=== PATIENT | male | born 1975 | race Caucasian/White ===

== ENCOUNTER → 2018-06-16 14:26 | Outpatient (CLI) | payer MEDICAID, SELFPAY ==
--- NOTE | 2018-06-16 14:29 | MR_ITS ---
MR lumbar spine wo con, MR 3-d myelogram/MRCP HISTORY: LBP XYRS. Bilateral LBP with Leg pain. LT Leg gives out. ITS.REASON: LOW BACK PAIN ORDERING PHYSICIAN: Alicia Lyons PATIENT AGE: 42 years Comparison: None TECHNIQUE: Standard multiplanar multiecho sequences are performed without contrast. 3-D MIP and myelographic images are also rendered and reviewed FINDINGS: There is normal alignment. The spinal cord ends at the L1-L2 level. T11-T12: Degenerative disc disease with type II endplate changes with cortical irregularity of the endplates. L1-L2: Minimal central disc protrusion without impingement. L2-L3: Unremarkable. L3-L4: Mild facet and ligamentum flavum hypertrophy. L4-L5: Minimal concentric bulging disc with a small annular fissure. Mild facet hypertrophic change. L5-S1: There is bulging disc with a small broad-based central disc protrusion very slightly eccentric toward the left abutting both S1 nerve roots left more so than right. No extruded herniated disc evident. IMPRESSION: 1.Bulging disc at L5-S1 with a small broad-based central disc protrusion very slightly eccentric toward the left abutting both S1 nerve roots left more so than right. 2. Minimal bulging disc at L4-L5 with small annular fissure 3. No extruded herniated disc or canal stenosis
== END ==
PROVIDERS: Family Provider Family Medicine; PCP Family Medicine; Visit Provider Nurse Practitioner Family
DX: M54.42 Lumbago with sciatica, left side (principal)
CPT/HCPCS: 72148; 76376

== ENCOUNTER 2018-07-06 08:30 | Outpatient (RCR) | payer MEDICAID, SELFPAY | END 2018-08-02 08:02 | disposition home or self-care (01) | LOC: PT 08:30 | PROVIDERS: Family Provider Family Medicine; PCP Family Medicine; Visit Provider Nurse Practitioner Family | DX: M54.5 Low back pain (principal) | CPT/HCPCS: 97010; 97012; 97014; 97035; 97110; 97163; G0283 ==

== ENCOUNTER → 2018-07-10 10:46 | Outpatient (POV) | payer MEDICAID, SELFPAY ==
[2018-07-10 11:11] VITALS: BP 154/99; PULSE 75; RESP 18; O2SAT 98
--- NOTE | 2018-07-10 12:42 | HMH.PMCON ---
Assessment and Plan (1) Degenerative disc disease Current visit: Yes Status: Chronic Qualifiers: Spinal region: lumbar Qualified Code(s): M51.36 - Other intervertebral disc degeneration, lumbar region Category: Medical (2) Lumbar radiculopathy Current visit: Yes Status: Chronic Category: Medical Code(s): M54.16 - Radiculopathy, lumbar region - Assessment and plan all Dx Assessment and Plan for all problems:: Patient and I discussed epidural injections. Patient is unsure if he wants to move forward with this. I do believe it would be beneficial for him. I will give the patient some information in regards to it if he decides that it is something he wants to move forward we will schedule an L4-L5 lumbar epidural steroid injection for him. Patient is not on any anticoagulation therapy. Patient's failed other conservative measures. Patient is continuing to do home stretching therapy. This note was dictated using voice recognition software and may contain errors or omissions HPI - Data of Consult Consult date: 07/10/18 Requesting Physician: Junie Morin APRN Primary Care Provider: Alicia Lyons Family Provider: Jaleel Wheeler - Consult Narrative Reason for consult: Back pain History of present illness: Mr. Gutierrez is a 42 year old male who presents today for consultation regards to back pain. Patient had a fall in 2005 where he began to have some lower back pain and radiation of the right side. Patient recently has had an exacerbation of pain and radiation bilateral sides. Patient's tried physical therapy with little to no relief. He has numbness and tingling in both legs. Patient states standing or walking for long periods of time increases pain. Patient's tried and failed anti-inflammatories along with gabapentin and Flexeril. Patient rates his pain a 5 out of 10 today. Patient does have an MRI that shows an L4-L5 bulging disc along with an L5-S1 bulging disc. CC: Junie Morin APRN [facility] History I have reviewed the patient's past medical history: Yes Medical History: Denies:: Diabetes Mellitus Type 1 Other Surgeries: Yes: Other - *Social History Smoking Status: Current every day smoker Tobacco Type: smokeless tobacco Alcohol Intake: never Substance Use Type: denies use Occupational Status: employed Housing: house - Psychiatric History Expresses thoughts of harming self/others: None Suicide Plan Description: No Plan Review of Systems - Review of Systems ROS General: no recent weight change, no fever, no sleep disturbances Respiratory: no cough, no shortness of air, no recurring pulmonary infections Cardiovascular/Peripheral Vascular: No chest pain, No palpitations, no edema, no shortness of breath. Gastrointestinal: no incontinence, normal bowel movements reported Genitourinary: no incontinence Musculoskeletal: Back pain and leg pain Psychiatric: normal mood/ affect Neurological: [denies weakness in extremities], [denies balance issues] Meds Home Medications Medication Instructions Recorded Confirmed Type cyclobenzaprine 10 mg tablet 7.5 mg PO TID tab 06/12/18 History diclofenac sodium 75 mg 75 mg PO BID 06/12/18 History tablet,delayed release gabapentin 300 mg capsule 300 mg PO TID 06/12/18 History Allergies Allergy/AdvReac Type Severity Reaction Status Date / Time No Known Allergies Allergy Verified 06/12/18 10:04 Objective Vital signs: Pulse Resp BP Pulse Ox 75 18 154/99 98 07/10/18 11:11 07/10/18 11:11 07/10/18 11:11 07/10/18 11:11 Narrative: Physical Exam General: Alert and oriented x3, no acute distress, pleasant and cooperative, [on room air] Lungs: Resps E/U, Symmetrical chest expansion, Eyes: PERRL Musculoskeletal: Flexion and extension of lumbar spine somewhat guarded secondary to pain, deep tendon reflexes normal, strength in upper and lower extremities [5/5], [abnormal ga
--- NOTE | 2018-07-10 12:46 | P.CONS_ITS ---
Assessment and Plan (1) Degenerative disc disease Current visit: Yes Status: Chronic Qualifiers: Spinal region: lumbar Qualified Code(s): M51.36 - Other intervertebral disc degeneration, lumbar region Category: Medical (2) Lumbar radiculopathy Current visit: Yes Status: Chronic Category: Medical Code(s): M54.16 - Radiculopathy, lumbar region - Assessment and plan all Dx Assessment and Plan for all problems:: Patient and I discussed epidural injections. Patient is unsure if he wants to move forward with this. I do believe it would be beneficial for him. I will give the patient some information in regards to it if he decides that it is something he wants to move forward we will schedule an L4-L5 lumbar epidural steroid injection for him. Patient is not on any anticoagulation therapy. Patient's failed other conservative measures. Patient is continuing to do home stretching therapy. This note was dictated using voice recognition software and may contain errors or omissions HPI - Data of Consult Consult date: 07/10/18 Requesting Physician: Junie Morin APRN Primary Care Provider: Alicia Lyons Family Provider: Jaleel Wheeler - Consult Narrative Reason for consult: Back pain History of present illness: Mr. Gutierrez is a 42 year old male who presents today for consultation regards to back pain. Patient had a fall in 2005 where he began to have some lower back pain and radiation of the right side. Patient recently has had an exacerbation of pain and radiation bilateral sides. Patient's tried physical therapy with little to no relief. He has numbness and tingling in both legs. Patient states standing or walking for long periods of time increases pain. Patient's tried and failed anti-inflammatories along with gabapentin and Flexeril. Patient rates his pain a 5 out of 10 today. Patient does have an MRI that shows an L4- L5 bulging disc along with an L5-S1 bulging disc. CC: Junie Morin APRN [facility] History I have reviewed the patient's past medical history: Yes Medical History: Denies:: Diabetes Mellitus Type 1 Other Surgeries: Yes: Other - *Social History Smoking Status: Current every day smoker Tobacco Type: smokeless tobacco Alcohol Intake: never Substance Use Type: denies use Occupational Status: employed Housing: house - Psychiatric History Expresses thoughts of harming self/others: None Suicide Plan Description: No Plan Review of Systems - Review of Systems ROS General: no recent weight change, no fever, no sleep disturbances Respiratory: no cough, no shortness of air, no recurring pulmonary infections Cardiovascular/Peripheral Vascular: No chest pain, No palpitations, no edema, no shortness of breath. Gastrointestinal: no incontinence, normal bowel movements reported Genitourinary: no incontinence Musculoskeletal: Back pain and leg pain Psychiatric: normal mood/ affect Neurological: [denies weakness in extremities], [denies balance issues] Meds Home Medications Medication Instructions Recorded Confirmed Type cyclobenzaprine 10 mg tablet 7.5 mg PO TID tab 06/12/18 History diclofenac sodium 75 mg 75 mg PO BID 06/12/18 History tablet,delayed release gabapentin 300 mg capsule 300 mg PO TID 06/12/18 History Allergies Allergy/AdvReac Type Severity Reaction Status Date / Time No Known
== END ==
PROVIDERS: Family Provider Family Medicine; PCP Nurse Practitioner Family; Visit Provider Clinical Nurse Specialist Family Health
DX: M54.16 Radiculopathy, lumbar region (principal)
CPT/HCPCS: 99202

== ENCOUNTER 2021-01-08 08:00 | Outpatient (RCR) | payer OTHER, SELFPAY | END 2021-02-11 13:30 | disposition home or self-care (01) | LOC: PT.CARL 08:00 | PROVIDERS: PCP Nurse Practitioner Family; Visit Provider Nurse Practitioner Family | DX: M50.13 Cervical disc disorder with radiculopathy, cervicothoracic region (principal) | CPT/HCPCS: 97010; 97012; 97014; 97110; 97140; 97163; G0283 ==

== ENCOUNTER → 2022-05-29 14:28 | Outpatient (CLI) | payer OTHER, SELFPAY | PROVIDERS: PCP Nurse Practitioner Family; Visit Provider Surgery | DX: Z01.812 Encounter for preprocedural laboratory examination (principal); Z20.822 Contact with and (suspected) exposure to COVID-19; Z12.11 Encounter for screening for malignant neoplasm of colon | CPT/HCPCS: C9803; U0003; U0005 ==

== ENCOUNTER 2022-06-01 06:01 | Day surgery (SDC) | payer OTHER, SELFPAY ==
[2022-06-01] VITALS (7 sets, daily range): BP systolic 95–131; BP diastolic 59–84; PULSE 51–74; RESP 18; TEMP 36.1–36.3; O2SAT 93–100; BMI 28.0
--- NOTE | 2022-06-01 07:20 | HMH.ANESCL ---
[facility] Anesthesia Checklist - Patient Identification Patient Identification: Arm Band, Verbal (Name & ) - Structural Data Admitted From: Home Planned Operative Procedure/s: Colonoscopy Consent for Planned Operative Procedure(s) Verified: Yes Verified Documents: Surgical Consent - NPO Status Verified Time NPO: 04:00 - Additional verifications Anesthesia Reactions: No - Airway Assessment C-Spine Mobility Assessed: Yes TMJ Mobility Assessed: Yes - Neurological Assessment Level of Consciousness: Awake, Alert, Appropriate - Anesthesia Plan Anesthesia Risk discussed: Yes ASA Class: II Anesthesia Type: MAC [facility] History I have reviewed the patient's past medical history: Yes Medical History: Denies:: Cancer, Diabetes Mellitus Type 1, Diabetes Mellitus Type 2, Internal Pacemaker, Lung Disease, MRSA, Seizures *Have you ever received a pneumonia vaccine?: No *Have you received a flu vaccine this season?: No Anesthesia experience/problems:: none Other Surgeries: Yes: Colonoscopy, Other (Left ankle fatty tumor excision). No: Pacemaker Amputation: No Fractures: No - *Social History Last grade of school completed: High school graduate Smoking Status: Never smoker Tobacco Type: smokeless tobacco Alcohol Intake: never Substance Use Type: denies use *Occupational Status:: employed Housing: house *Travel in the last 8 weeks: None Family Hx:: Cancer
--- NOTE | 2022-06-01 07:53 | HMH.SCOPE ---
- Procedure: Date: 06/01/22 Patient Date of :: 1975 Procedure Performed:: Colonoscopy with polypectomy by means other than snare Indications:: History of colon polyps. Colonoscopy in May 2019 was somewhat complicated by [id number] bowel preparation. Spasticity and tortuosity also noted. Adenomatous polyps removed from the transverse colon and at 10 cm. Performing Provider:: Chivo Venegas MD Referring Provider:: . Sedation:: Monitored anesthesia care Procedure:: After informed consent was obtained the patient was taken to the endoscopy suite. Sedation ensued after the patient was transferred to the left lateral decubitus position. Pulse, blood pressure, and oxygen saturation were monitored throughout the procedure. Digital rectal exam revealed no significant abnormality. The colonoscope was placed in position. The entire colon was evaluated. The colonoscope was carefully removed and the patient was transferred to recovery in stable condition. Please see findings and specimens below for detail. Findings:: Bowel preparation moderate Fairly significant spasticity/lack of relaxation Polyps (see specimens) Specimens:: Small periappendiceal polyp (cold biopsy forceps) Polyp at 45 cm (cold biopsy forceps) Recommendations:: Timing of repeat colonoscopy is pending pathology but will likely be between 3-5 years. Complications:: No immediate Estimated blood obtained (mL): 1
== END 2022-06-01 08:50 | disposition home or self-care (01) ==
LOC: OUTP 06:03
PROVIDERS: PCP Nurse Practitioner Family; Visit Provider Surgery
PROC: 0DJD8ZZ Inspection of Lower Intestinal Tract, Via Natural or Artificial Opening Endoscopic (ICD-10-PCS; CPT 45380; principal; 2022-06-01 07:30)
DX: Z12.11 Encounter for screening for malignant neoplasm of colon (principal); K63.5 Polyp of colon; Z86.010 Personal history of colon polyps
CPT/HCPCS: 45380

== ENCOUNTER → 2022-09-13 11:09 | Outpatient (CLI) | payer OTHER, SELFPAY ==
--- NOTE | 2022-09-13 11:20 | MR_ITS ---
FINAL REPORT CLINICAL HISTORY: LOW BACK PAIN, BILATERAL LEG PAIN X2 WEEKS COMPARISON: 06/16/2018 FINDINGS: Multiplanar MR imaging of the lumbar spine was performed without contrast. On the sagittal T2-weighted images, disc degeneration is seen at multiple levels. There is mild retrolisthesis of L4 on 5 and L5 on S1. There are endplate changes at several levels. There is no evidence of fracture. The conus has an unremarkable appearance. L1-2: An annular bulge is present with mild right neural foraminal narrowing. L2-3: An annular bulge is present. There is a left foraminal disc protrusion, larger than previous with mild right and moderate left neural foraminal narrowing. L3-4: An annular bulge is present. There is a right foraminal annular tear and disc protrusion, slightly larger than previous with moderate right and mild left neural foraminal narrowing. L4-5: An annular bulge and facet arthropathy are present. There is a posterior midline annular tear and central disc protrusion, slightly larger than previous. This mildly displaces the left L5 nerve root and contacts the right L5 nerve roots. There is mild bilateral neural foraminal narrowing. L5-S1: An annular bulge is present. Facet arthropathy and osteophytes are present. There is a small central disc protrusion, stable from previous with moderate bilateral neural foraminal narrowing. IMPRESSION: Multilevel disc protrusions are slightly larger than previous exam. Multilevel degenerative disc disease and spondylosis. Reviewed, Interpreted and Dictated by Bg Monteiro III, MD Transcribed by Lydia Koehler Authenticated and [facility]
== END ==
PROVIDERS: PCP Nurse Practitioner Family; Visit Provider Nurse Practitioner Family
DX: M51.16 Intervertebral disc disorders with radiculopathy, lumbar region (principal)
CPT/HCPCS: 72148; 76376

== ENCOUNTER → 2022-09-15 09:57 | Outpatient (CLI) | payer OTHER, SELFPAY ==
[2022-09-15 10:35] LABS: Basophils # 0.1 K/mm3 (0-0.2); Basophils % 1.6 % (0.1-2.0); Eosinophils # 0.2 K/mm3 (0.0-0.4); Eosinophils % 2.5 % (0.1-12.0); Hematocrit 53.2 % (42.0-52.0); Hemoglobin 17.2 g/dL (14.1-18.0); Lymphocytes # 1.5 K/mm3 (0.7-4.5); Lymphocytes % 24.5 % (10-50); Mean Corpuscular HGB Conc 32.3 g/dL (31.8-35.4); Mean Corpuscular Hemoglobin 27.3 pg (27.0-31.2); Mean Corpuscular Volume 84.7 fl (80-94); Mean Platelet Volume 9.2 fl (7.4-10.4); Monocytes # 0.4 K/mm3 (0.1-1.0); Monocytes % 6.3 % (1.7-9.3); Neutrophils # 4.1 K/mm3 (1.8-7.8); Neutrophils % 65.2 % (37.0-80.0); Platelet Count 209 K/mm3 (142-424); Red Blood Count 6.28 M/mm3 (4.60-6.20); Red Cell Distribution Width 14.5 % (11.5-17.5); White Blood Count 6.2 K/mm3 (4.8-10.8)
[2022-09-15 10:52] LABS: Blood Urea Nitrogen 16 mg/dl (9-20); Calcium 9.5 mg/dl (8.4-10.2); Carbon Dioxide 28 mmol/L (22.0-30.0); Chloride 103 mmol/L (98-107); Estimated Glomerular Filt Rate 104 ml/min (>60); GFR (African American) 125 ML/MIN (>60); Glucose 83 mg/dl (74-100); Sodium 141 mmol/L (136-145)
== END ==
PROVIDERS: PCP Nurse Practitioner Family; Visit Provider Surgery
DX: Z01.812 Encounter for preprocedural laboratory examination (principal); D17.9 Benign lipomatous neoplasm, unspecified
CPT/HCPCS: 36415; 80048; 85025

== ENCOUNTER 2022-09-23 05:57 | Day surgery (SDC) | payer OTHER, SELFPAY ==
[2022-09-22 08:33] VITALS: BMI 28.0
[2022-09-23 06:10] VITALS: BP 99/53; PULSE 77; RESP 18; TEMP 36.1; O2SAT 99
--- NOTE | 2022-09-23 07:02 | P.PN_ITS ---
[facility] Surgical History History of colonoscopy Family History Other No significant family history Social History Smoking Status: Never smoker alcohol intake: never substance use type: denies use current occupational status: employed Travel in the last 8 weeks: None housing: house caffeine: Yes [facility] Anesthesia Checklist Patient Identification Patient Identification: Verbal (Name & ) Structural Data Admitted From: Home Planned Operative Procedure/s: excision neoplasm chest Additional verifications Anesthesia Reactions: No Hx Blood Transfusions: No Blood Transfusion Reaction: No Airway Assessment C-Spine Mobility Assessed: Yes TMJ Mobility Assessed: Yes Dentition: Edentulous Neurological Assessment Level of Consciousness: Awake, Alert and Appropriate Anesthesia Plan Anesthesia Risk discussed: Yes Anesthesia Plan: Verified ASA Class: II Anesthesia Type: MAC
--- NOTE | 2022-09-23 07:22 | P.OP_ITS ---
Date of procedure: 09/23/22 Pre-op Diagnosis:: Right abdominal wall/chest lipoma (4.5 cm) Post-op Diagnosis:: Same Procedure performed:: Excision of right abdominal wall/chest lipoma (4.5 cm) Surgeon:: Chivo Venegas MD COMPRESS MACHINE OPERATOR:: Gino Reyes Anesthesia: MAC and local Estimated blood loss (mL): 10 Operative findings:: Deep subcutaneous abdominal wall/chest wall lipoma with projection to the fascial margin Operative note:: After informed consent was obtained the patient was taken to the operating room and placed in the supine position. Monitored anesthesia care ensued and his abdomen/chest was prepped and draped in a sterile fashion. After infiltration local anesthetic a transverse incision was made overlying the palpable lesion. A combination of sharp dissection, blunt dissection, and electrocautery was utilized to transect through the deep subcutaneous tissue. A deep subcutaneous lipoma was carefully elevated. The lipoma projected to the fascial margin but was not intramuscular. The lipoma was resected in toto and passed off for pathologic evaluation. Electrocautery was utilized to achieve hemostasis. Skin was reapproximated with running 3-0 Monocryl STRATAFIX. Dressings were applied and the patient was transferred to recovery in stable condition. Condition: stable Disposition: PACU Specimens:: Right abdominal wall/chest wall lipoma Complications:: No immediate
[2022-09-23 07:25] VITALS: BP 123/86; PULSE 73; RESP 18; TEMP 36.4; O2SAT 98
[2022-09-23 07:35] VITALS: BP 136/90; PULSE 73; RESP 18; O2SAT 96
[2022-09-23 07:45] VITALS: BP 125/79; PULSE 63; RESP 18; O2SAT 98
--- NOTE | 2022-09-23 07:46 | SUR.PHASEII ---
Left message with Dr. Venegas to call RN back, pt C/O pain at 7 or 06/23.
[2022-09-23 07:55] VITALS: BP 121/82; PULSE 64; RESP 18; O2SAT 99
--- NOTE | 2022-09-23 08:03 | SUR.PHASEII ---
Pt medicated with Morphine 1mg IV and [place] 5/325mg po for C/O pain 06/23
[2022-09-23 08:20] VITALS: BP 126/80; PULSE 58; RESP 18; O2SAT 98
== END 2022-09-23 08:21 | disposition home or self-care (01) ==
PROVIDERS: PCP Nurse Practitioner Family; Visit Provider Surgery
PROC: (CPT 22903; principal; 2022-09-23 06:45)
DX: D17.5 Benign lipomatous neoplasm of intra-abdominal organs (principal)
CPT/HCPCS: 22903; 96374; J2704

== ENCOUNTER → 2022-09-28 08:41 | Outpatient (POV) | payer OTHER, SELFPAY ==
[2022-09-28 08:43] VITALS: BP 149/101; PULSE 76; RESP 18; O2SAT 97; BMI 28.0
--- NOTE | 2022-09-28 09:14 | EXP.PAIN.OV ---
HPI Data of Consult Patient: new to practice Consult date: 09/28/22 Requesting Physician: Shauna Clancy APRN Primary Care Provider: Alicia Lyons Consult Narrative Reason for consult: Low back pain, bilateral leg pain History of present illness: Mr. Gutierrez is a 46 year old male who presents today as a new patient. He is a past patient of ours from 2018. At that time we were seeing him for degenerative disc disease of his lumbar spine with lumbar radiculopathy symptoms. Today he rates his pain a 8 out of 10. He states the pain is all in his low back that radiates down into his bilateral lower extremities. Patient states that he fell off a barn and landed on his feet in 2005 and has had progressively worsening pain since. Patient denies any new trauma or injury. Patient denies any change to location or type of pain he experiences. Patient does state this is a aching, throbbing sensation with occasional sharp pains that radiate down both legs and also have numbness and tingling in his bilateral feet. Patient states this affects his ability to perform activities of daily living that he has had even trouble walking due to the pain. 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 Patient does use [id number] Tylenol and ibuprofen as needed to help with his symptoms. Patient is also tried heat and ice however he states this only helps for a limited timeframe. Patient has not had any injections in his back. Patient states he had been previously saw in [place] where he was going for chronic neck pain and did have 2 injections. Patient states he has had physical therapy on 3 different occasions in the past however it has been a couple of years ago. Patient is not currently on any scheduled medications. His Aaron is [phone]. It has been reviewed and appropriate. CC: Shauna Clancy APRN [facility] Surgical History History of colonoscopy Family History Other No significant family history Social History Smoking Status: Never smoker alcohol intake: never substance use type: denies use current occupational status: employed Travel in the last 8 weeks: None housing: house caffeine: Yes Review of Systems Review of Systems Review of systems:: pertinent systems reviewed and negative unless documented below Review of systems (narrative): Review of Systems: General: No recent weight changes, no fever, no sleep disturbances Respiratory: No cough, no shortness of air, no recurring pulmonary infections Cardiovascular/peripheral vascular: No chest pain, no palpitations, no edema, no shortness of breath Gastrointestinal: No new onset incontinence, normal bowel movements reported Genitourinary: No new onset incontinence Musculoskeletal: Low back pain, bilateral leg pain Psychiatric: [Normal mood/affect] Neurological: [Denies weakness in extremities], [denies balance issues] Meds Home Medications and Allergies Home Medications Medication Instructions Recorded Confirmed Type No Known Home Medications 09/22/22 09/28/22 History New Prescriptions to Start Prescriptions: Allergies Allergy/AdvReac Type Severity Reaction Status Date / Time No Known Allergies Allergy Verified 09/22/22 08:37 Objective Vital signs: Pulse Resp BP Pulse Ox 76 18 149/101 H 97 09/28/22 08:43 09/28/22 08:43 09/28/22 08:43 09/28/22 08:43 Narrative: Physical Exam: General: Alert and oriented x3, no acute distress, pleasant and cooperative Lungs: Respirations even and unlabored, symmetrical chest expansion Eyes: PERRL Musculoskeletal: Flexion and extension of lumbar [spine] somewhat guarded secondary to pain, [antalgic gait noted] Neurological: Speech clear, no gross sensory deficit Additio
== END ==
PROVIDERS: PCP Nurse Practitioner Family; Visit Provider Nurse Practitioner Family
DX: M51.16 Intervertebral disc disorders with radiculopathy, lumbar region (principal); M54.2 Cervicalgia; M79.604 Pain in right leg; M79.605 Pain in left leg; M47.26 Other spondylosis with radiculopathy, lumbar region; Z72.0 Tobacco use
CPT/HCPCS: 99202; G0463

== ENCOUNTER 2022-10-12 08:05 | Day surgery (SDC) | payer OTHER, SELFPAY ==
[2022-10-12 08:20] VITALS: BP 140/87; PULSE 60; RESP 18; TEMP 36.3; O2SAT 100; BMI 28.0
[2022-10-12 08:54] VITALS: BP 136/80; PULSE 62; RESP 18
[2022-10-12 08:55] VITALS: BP 136/80; PULSE 62; RESP 18
--- NOTE | 2022-10-12 09:04 | EXP.PAIN.PRO ---
Procedure Date: 10/12/22 Time: 09:00 Anesthesiologist:: Dm Centeno CRNA Complications:: None Pre-procedure Diagnosis:: Degenerative disc disease lumbar spine. Lumbar radiculopathy. Post-procedure Diagnosis:: Same. Indications for Procedure:: This patient is a pleasant 46-year-old male that comes our clinic today for lumbar epidural steroid injection at the L5-S1 level. Patient describes low back pain as constant, dull, aching. Patient also complains of bilateral leg radicular symptoms at times. Left greater than right Procedure Details:: Procedure: Lumbar epidural steroid injection under fluoroscopy Informed consent was obtained and the risks and benefits of the procedure were explained to the patient. The patient was taken to the procedure room and noninvasive monitors placed, including noninvasive blood pressure cuff and pulse oximeter. The back was viewed using C-arm Fluoroscopy and prepped using Chloraprep as a cleansing solution and the L5/S1 interspace was palpated. Skin and subcutaneous tissues were anesthetized using lidocaine 1.5% and a 25-gauge needle. After this, an 18-gauge Touhy epidural needle was placed into the L5/S1 interspace and advanced using fluoroscopic guidance and loss of resistance to air until the epidural space was encountered. After confirmation of needle placement in the epidural space, with dye, a solution containing normal saline, 3 mL and Depo-Medrol 80 mg were incrementally injected into the lumbar epidural space. The patient tolerated the procedure well with no complications. The patient was observed in the Pain Clinic and then discharged home neurologically intact. Plan and Disposition:: Patient was discharged without incident
[2022-10-12 09:13] VITALS: BP 150/71; PULSE 54; RESP 20
== END 2022-10-12 09:13 | disposition home or self-care (01) ==
PROVIDERS: PCP Nurse Practitioner Family; Visit Provider Nurse Anesthetist, Certified Registered
DX: M51.16 Intervertebral disc disorders with radiculopathy, lumbar region (principal)
CPT/HCPCS: 62323; J1040; Q9966

== ENCOUNTER → 2022-11-11 10:43 | Outpatient (POV) | payer OTHER, SELFPAY ==
[2022-11-11 10:48] VITALS: BP 143/76; PULSE 77; RESP 18; O2SAT 98; BMI 29.5
--- NOTE | 2022-11-11 11:24 | EXP.PAIN.SOA ---
[facility] Pain Management SOAP Note Subjective:: Patient is a pleasant 47-year-old male who presents today for follow-up of lumbar epidural steroid injection at L5-S1 on 10/12/2022. We are currently treating the patient for degenerative disc disease of lumbar spine with lumbar radiculopathy symptoms, lumbar spondylosis, bilateral leg pain, low back pain, neck pain. Today the patient states he has had at least 90% improvement lasting approximately 3 weeks from this injection. 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 He does rate his pain a 5 out of 10. Patient denies any new trauma or injury. Patient denies any change location or type of pain he experiences. Patient states he had previously been prescribed a muscle relaxer and an anti-inflammatory however these just made him sleep all the time and he discontinued them. Patient does state that his pain is a numbness and tingling in his bilateral feet along with aching and throbbing in his low back with occasional sharp pains. Patient states it does affect his ability to perform activities of daily living such as farm work. Patient does use [id number] Tylenol and ibuprofen as needed to help with some of his additional pain. Patient also uses heat and ice. Patient is not on any scheduled medications. His Aaron is [id number]. Its been reviewed and appropriate. Review of Systems: General: No recent weight changes, no fever, no sleep disturbances Respiratory: No cough, no shortness of air, no recurring pulmonary infections Cardiovascular/peripheral vascular: No chest pain, no palpitations, no edema, no shortness of breath Gastrointestinal: No new onset incontinence, normal bowel movements reported Genitourinary: No new onset incontinence Musculoskeletal: Low back pain, leg pain Psychiatric: [Normal mood/affect] Neurological: [Denies weakness in extremities], [denies balance issues] Objective:: Physical Exam: General: Alert and oriented x3, no acute distress, pleasant and cooperative Lungs: Respirations even and unlabored, symmetrical chest expansion Eyes: PERRL Musculoskeletal: Flexion and extension of lumbar [spine] somewhat guarded secondary to pain, [antalgic gait noted] Neurological: Speech clear, no gross sensory deficit Assessment:: Degenerative disc disease of lumbar spine with lumbar radiculopathy symptoms, lumbar spondylosis, neck pain Plan:: Patient is experiencing significant pain in his low back with radiating symptoms into his lower extremities. Patient did have limited range of motion of his lumbar spine during today's visit. I have discussed with the patient that he may benefit from repeat lumbar epidural steroid injections. Risk and benefits were discussed with the patient. He would like to proceed forward with this plan of care. Patient is not on any blood thinners. We will schedule him for a lumbar epidural steroid injection at L5-S1. Patient has been instructed to contact the clinic with any concerns before the next appointment. Dr. Tanner has reviewed this note and agrees with this plan of care. This note was dictated using voice recognition software and make contain errors or omissions. [facility] Disclaimer: The information contained in this section may have been updated after the patient was seen, as this information can be updated by other users. Surgical History History of colonoscopy Family History Other No significant family history Social History Smoking Status: Never smoker alcohol intake: never substance use type: denies use current occupational status: employed Travel in the last 8 weeks: None housing: house caffeine: Yes
== END ==
PROVIDERS: PCP Nurse Practitioner Family; Visit Provider Nurse Practitioner Family
DX: M51.16 Intervertebral disc disorders with radiculopathy, lumbar region (principal); M47.26 Other spondylosis with radiculopathy, lumbar region
CPT/HCPCS: 99212; G0463

== ENCOUNTER 2022-11-23 08:19 | Day surgery (SDC) | payer OTHER, SELFPAY ==
[2022-11-23 08:31] VITALS: BP 159/89; PULSE 58; RESP 18; TEMP 36.3; O2SAT 100; BMI 28.8
[2022-11-23 08:42] VITALS: BP 154/73; PULSE 57; RESP 18; O2SAT 98
[2022-11-23 08:43] VITALS: BP 154/73; PULSE 57; RESP 18; O2SAT 98
[2022-11-23 08:48] VITALS: BP 133/83; PULSE 55; RESP 18; O2SAT 100
--- NOTE | 2022-11-23 09:09 | EXP.PAIN.PRO ---
Procedure Date: 11/23/22 Time: 09:00 Anesthesiologist:: Dm Centeno CRNA Complications:: None Pre-procedure Diagnosis:: Degenerative disc disease lumbar spine multilevels. Lumbar radiculopathy. Post-procedure Diagnosis:: Same. Indications for Procedure:: Patient is a pleasant 47-year-old male that comes our clinic today for a second lumbar epidural steroid injection of the L5-S1 level. Patient's first injection gave him 3 weeks of significant improvement terms of his low back pain and bilateral hip and leg radicular symptoms. He reports today his pain is returned to some degree. However, overall he is still better than he was prior to the first injection. He rates his pain today 6/10. Procedure Details:: Procedure: Lumbar epidural steroid injection under fluoroscopy Informed consent was obtained and the risks and benefits of the procedure were explained to the patient. The patient was taken to the procedure room and noninvasive monitors placed, including noninvasive blood pressure cuff and pulse oximeter. The back was viewed using C-arm Fluoroscopy and prepped using Chloraprep as a cleansing solution and the L4-L5 interspace was palpated. Skin and subcutaneous tissues were anesthetized using lidocaine 1.5% and a 25-gauge needle. After this, an 18-gauge Touhy epidural needle was placed into the L4-L5 interspace and advanced using fluoroscopic guidance and loss of resistance to air until the epidural space was encountered. After confirmation of needle placement in the epidural space, with dye, a solution containing normal saline, 3 mL and Depo-Medrol 80 mg were incrementally injected into the lumbar epidural space. The patient tolerated the procedure well with no complications. The patient was observed in the Pain Clinic and then discharged home neurologically intact. Plan and Disposition:: Patient was discharged without incident.
== END 2022-11-23 08:48 | disposition home or self-care (01) ==
LOC: SC.PAINP 08:20
PROVIDERS: PCP Nurse Practitioner Family; Visit Provider Nurse Anesthetist, Certified Registered
DX: M51.16 Intervertebral disc disorders with radiculopathy, lumbar region (principal)
CPT/HCPCS: 62323; J1040

== ENCOUNTER → 2022-12-06 09:30 | Outpatient (POV) | payer OTHER, SELFPAY ==
[2022-12-06 09:50] VITALS: BP 148/94; PULSE 94; RESP 18; O2SAT 98; BMI 28.3
--- NOTE | 2022-12-06 09:53 | EXP.PAIN.SOA ---
[facility] Pain Management SOAP Note Subjective:: Patient is a pleasant 47-year-old male who presents today for follow-up of lumbar epidural steroid injection at L4-L5 on 11/23/2022. We are currently treating the patient for degenerative disc disease of lumbar spine with lumbar radiculopathy symptoms, lumbar spondylosis, bilateral leg pain, low back pain, neck pain. Patient states he did not get significant relief with this epidural. Patient previously got a epidural of L5-S1 in September that gave 90% improvement lasting at least 3 weeks. Patient denies any new trauma or injury. Patient denies any change to the location or type of pain he experiences. Patient does rate his pain a 10 out of 10 and states it is a aching, throbbing sensation that is worse with increased activity. Patient has tried muscle relaxers and anti-inflammatories in the past with minimal improvement. Patient does state he will use [id number] Tylenol as needed along with heat and ice. Patient is interested in trying another injection. His Aaron is [id number]. Its been reviewed and appropriate. Review of Systems: General: No recent weight changes, no fever, no sleep disturbances Respiratory: No cough, no shortness of air, no recurring pulmonary infections Cardiovascular/peripheral vascular: No chest pain, no palpitations, no edema, no shortness of breath Gastrointestinal: No new onset incontinence, normal bowel movements reported Genitourinary: No new onset incontinence Musculoskeletal: Low back pain, leg pain Psychiatric: [Normal mood/affect] Neurological: [Denies weakness in extremities], [denies balance issues] Objective:: Physical Exam: General: Alert and oriented x3, no acute distress, pleasant and cooperative Lungs: Respirations even and unlabored, symmetrical chest expansion Eyes: PERRL Musculoskeletal: Flexion and extension of lumbar [spine] somewhat guarded secondary to pain, [antalgic gait noted] Neurological: Speech clear, no gross sensory deficit ORT score updated with low risk Assessment:: Degenerative disc disease of lumbar spine with lumbar radiculopathy symptoms, lumbar spondylosis, bilateral leg pain, low back pain, neck pain Plan:: Patient continues to experience significant pain in his low back with radiating symptoms into his bilateral lower extremities. Patient did have limited range of motion of his lumbar spine during today's visit. I have discussed with the patient regarding repeating his prior lumbar epidural steroid injection at L5-S1. Risk and benefits were discussed with the patient. He would like to proceed forward with this plan of care. Patient's previous injection at this level did provide at least 90% improvement for almost 1 month. Patient is not on any blood thinners. We will schedule him for a lumbar epidural steroid injection at L5-S1. Patient has been instructed to contact the clinic with any concerns before the next appointment. Dr. Tanner has reviewed this note and agrees with this plan of care. This note was dictated using voice recognition software and make contain errors or omissions. [facility] Disclaimer: The information contained in this section may have been updated after the patient was seen, as this information can be updated by other users. Surgical History History of colonoscopy Family History Other No significant family history Social History Smoking Status: Never smoker alcohol intake: never substance use type: denies use current occupational status: employed Travel in the last 8 weeks: None housing: house caffeine: Yes
== END ==
PROVIDERS: PCP Nurse Practitioner Family; Visit Provider Nurse Practitioner Family
DX: M51.16 Intervertebral disc disorders with radiculopathy, lumbar region (principal); M47.26 Other spondylosis with radiculopathy, lumbar region; M79.604 Pain in right leg; M79.605 Pain in left leg
CPT/HCPCS: 99212; G0463